=== PATIENT | female | born 1985 ===

== ENCOUNTER 2017-04-09 21:01 | Emergency (ER) | payer MEDICAID, OTHER ==
[2017-04-09 21:31] VITALS: BP 112/79; PULSE 85; RESP 18; TEMP 98.4
[2017-04-09] MEDS ORDERED: Albuterol-Ipratrop 3 mg / 0.5 (3 ml) UD INH STA (22:14)
--- NOTE | 2017-04-09 22:33 | ED PDOC ---
HPI: Asthma Chief Complaint (Provider): shortness of breath History Per: Patient History/Exam Limitations: no limitations Onset/Duration Of Symptoms: Other (3 weeks) Current Symptoms Are (Timing): Still Present Associated Symptoms: Dyspnea, Cough, Sputum Production Severity: Moderate Additional Complaint(s): Hanna Stanton is a 31 yo F with PMH asthma who presented to the ED today with 3 weeks of worsening shortness of breath and cough productive of yellow sputum. She has a Ventolin inhaler, which she has been using 8-10x a day for the past week, along with nebulizer treatments 3+ times per night due to cough waking her up. She tried to remedy her symptoms at home with her inhaler, nebulizer treatments, and OTC medications like mucinex, but did not find relief. She has been hospitalized for asthma exacerbation before, last time around age 20, and has never been intubated. She denies tobacco use. PMD: Dr. Leo <Irene Peck - Last Filed: 04/10/17 00:56> <Remedios Tinoco - Last Filed: 04/13/17 22:39> Time Seen by Provider: 04/09/17 21:50 Chief Complaint (Nursing): Shortness Of Breath Past Medical History Vital Signs: Last Vital Signs Temp 98.4 F 04/09/17 21:28 Pulse 85 04/09/17 21:28 Resp 18 04/09/17 21:28 BP 112/79 04/09/17 21:28 Pulse Ox 97 04/09/17 21:28 - Medical History PMH: Asthma - Family History Family History: States: Other Other Family History: asthma <Irene Peck - Last Filed: 04/10/17 00:56> Vital Signs: Last Vital Signs Temp 98.4 F 04/09/17 21:28 Pulse 85 04/09/17 21:28 Resp 18 04/09/17 22:48 BP 112/79 04/09/17 21:28 Pulse Ox 97 04/10/17 00:56 <Remedios Tinoco - Last Filed: 04/13/17 22:39> - Home Medications Home Medications: Ambulatory Orders Medication Instructions Recorded Azithromycin 1 tab PO DAILY #6 tab 04/10/17 Montelukast [Singulair] 10 mg PO DAILY #30 tab 04/10/17 Prednisone 50 mg PO DAILY #4 tablet 04/10/17 - Allergies Allergies/Adverse Reactions: Allergies Allergy/AdvReac Type Severity Reaction Status Date / Time No Known Allergies Allergy Verified 04/09/17 21:31 Review of Systems Constitutional: Negative for: Fever, Chills Cardiovascular: Negative for: Palpitations Respiratory: Positive for: Cough, Shortness of Breath, Sputum, Wheezing. Negative for: Hemoptysis Gastrointestinal: Negative for: Nausea, Vomiting, Diarrhea, Constipation Genitourinary Female: Negative for: Dysuria, Frequency Neurological: Negative for: Weakness, Numbness <Irene Peck - Last Filed: 04/10/17 00:56> Physical Exam - Physical Exam Appears: Positive for: No Acute Distress (speaking in full sentences) Head Exam: Positive for: ATRAUMATIC, NORMAL INSPECTION, NORMOCEPHALIC Skin: Positive for: Normal Color, Warm, Dry Eye Exam: Positive for: Normal appearance. Negative for: Conjunctival injection ENT: Positive for: Normal ENT Inspection, Pharynx Is (clear). Negative for: Pharyngeal Erythema, Tonsillar Exudate Neck: Positive for: Normal, Painless ROM, Supple Cardiovascular/Chest: Positive for: Regular Rate, Rhythm. Negative for: Murmur Respiratory: Positive for: Wheezing (bilaterally throughout). Negative for: Accessory Muscle Use, Respiratory Distress Gastrointestinal/Abdominal: Positive for: Bowel Sounds, Soft Extremity: Positive for: Normal ROM. Negative for: Tenderness, Deformity Neurologic/Psych: Positive for: Alert, Oriented <Irene Peck - Last Filed: 04/10/17 00:56> - ECG O2 Sat by Pulse Oximetry: 97 <Irene Peck - Last Filed: 04/10/17 00:56> Medical Decision Making Medical Decision Making: CXR Duoneb treatment Methylprednisone 125 mg IV Pt reported relief with treatment; to be discharged with instructions to follow up with PMD. Pt discussed with Dr. Tinoco. <Irene Peck - Last Filed: 04/10/17 00:56> Disposition - Patient ED Disposition Is Patient to be Admitted: No - Disposition Disposition: Routine/Home Disposition Time: 00:52 <Irene Peck - Last Filed: 04/10/17 00:56> <Remedios Tinoco - Last Filed: 04/13/17 22:39> - Clinical Impression Clinical Impression: Asthma exacerbation - Disposition Referrals: Gera Leo MD [Staff Provider] - Condition: STABLE Prescriptions: Azithromycin 1 tab PO DAILY #6 tab Montelukast [Singulair] 10 mg PO DAILY #30 tab Prednisone 50 mg PO DAILY #4 tablet Instructions: Asthma (ED), Acute Bronchitis (ED) Forms: [facility] ED School/Work Excuse
[2017-04-09] MEDS ORDERED: Albuterol-Ipratrop 3 mg / 0.5 (3 ml) UD ONE (22:40)
[2017-04-10 00:55] VITALS: O2SAT 97
--- NOTE | 2017-04-10 09:12 | RAD ---
HISTORY: sob COMPARISON: No prior. TECHNIQUE: Chest PA and lateral FINDINGS: LUNGS: No active pulmonary disease. PLEURA: No significant pleural effusion identified. No pneumothorax apparent. CARDIOVASCULAR: Normal. OSSEOUS STRUCTURES: Limited scoliosis of the cervicothoracic spine noted. VISUALIZED UPPER ABDOMEN: Normal. OTHER FINDINGS: None. IMPRESSION: No acute cardiopulmonary disease appreciated. Limited scoliosis of the cervicothoracic spine noted.
== END 2017-04-10 00:33 | disposition home or self-care (01) ==
LOC: H.ER 21:01
DX: J45.901 Unspecified asthma with (acute) exacerbation (principal)
CPT/HCPCS: 71046; 81025; 94640; 96372; 99283; J2930

== ENCOUNTER 2018-03-18 09:12 | Emergency (ER) | payer OTHER ==
[2018-03-18] MEDS ORDERED: Albuterol-Ipratrop 3 mg / 0.5 (3 ml) UD INH STA (10:00)
--- NOTE | 2018-03-18 10:00 | ED PDOC ---
HPI: Influenza Time Seen by Provider: 03/18/18 09:22 Chief Complaint: Cough, Cold, Congestion Past Medical History - Medical History PMH: Asthma - Home Medications Home Medications: Ambulatory Orders Medication Instructions Recorded Azithromycin 1 tab PO DAILY #6 tab 04/10/17 Montelukast [Singulair] 10 mg PO DAILY #30 tab 04/10/17 Prednisone 50 mg PO DAILY #4 tablet 04/10/17 - Allergies Allergies/Adverse Reactions: Allergies Allergy/AdvReac Type Severity Reaction Status Date / Time No Known Allergies Allergy Verified 04/09/17 21:31 Disposition - Disposition Referrals: Gera Leo MD [Primary Care Provider] -
[2018-03-18 10:01] VITALS: PULSE 85; RESP 18; TEMP 98.2
[2018-03-18] MEDS ORDERED: Albuterol-Ipratrop 3 mg / 0.5 (3 ml) UD ONE (10:05)
--- NOTE | 2018-03-18 10:06 | ED PDOC ---
HPI: Asthma Time Seen by Provider: 03/18/18 09:22 Chief Complaint (Nursing): Cough, Cold, Congestion History Per: Patient Additional Complaint(s): Pt. states for the past 2 weeks she's had a non-productive cough with wheezing. Has been using her albuterol inhaler everyday since the onset. Initially albuterol was providing temporary relief of wheezing but as of late the wheezing has been unresolved. Of note, pt. states she does have a hx of asthma and has been admitted for it in the past 2006 but no previous intubations. Denies fever, chest pain, hemoptysis, sputum production, chills, chest pain. Past Medical History Reviewed: Historical Data, Nursing Documentation, Vital Signs Vital Signs: Last Vital Signs Temp 98.2 F 03/18/18 09:46 Pulse 85 03/18/18 09:46 Resp 18 03/18/18 09:46 BP Pulse Ox 92 L 03/18/18 09:46 - Medical History PMH: Asthma - Surgical History Surgical History: No Surg Hx - Family History Family History: States: No Known Family Hx - Home Medications Home Medications: Ambulatory Orders Medication Instructions Recorded Azithromycin 1 tab PO DAILY #6 tab 04/10/17 Montelukast [Singulair] 10 mg PO DAILY #30 tab 04/10/17 Prednisone 50 mg PO DAILY #4 tablet 04/10/17 Albuterol 0.083% [Albuterol 3 ml IH Q4 PRN #30 neb 03/18/18 Sulfate 3 Ml] Albuterol HFA [Ventolin HFA 90 2 puff IH Q4 PRN #120 puff 03/18/18 mcg/actuation (8 g)] Nebulizer [Aeroeclipse II] 1 each NEB Q4 PRN #1 each 03/18/18 predniSONE [Prednisone] 3 tab PO DAILY #12 tab 03/18/18 - Allergies Allergies/Adverse Reactions: Allergies Allergy/AdvReac Type Severity Reaction Status Date / Time No Known Allergies Allergy Verified 04/09/17 21:31 Review of Systems ROS Statement: Except As Marked, All Systems Reviewed And Found Negative Respiratory: Positive for: Cough, Shortness of Breath, Wheezing Physical Exam - Physical Exam Appears: Positive for: Well, Non-toxic, No Acute Distress (speaking in full sentences) Skin: Positive for: Normal Color, Warm. Negative for: Rash Eye Exam: Positive for: Normal appearance Cardiovascular/Chest: Positive for: Regular Rate, Rhythm Respiratory: Positive for: Wheezing (moderate b/l expiratory wheezing). Negative for: Decreased Breath Sounds, Accessory Muscle Use, Rales, Rhonchi, Respiratory Distress Neurologic/Psych: Positive for: Alert, Oriented (x3) - ECG O2 Sat by Pulse Oximetry: 92 - Radiology X-Ray: Interpreted by Me (CXR) X-Ray Interpretation: No Acute Disease - Progress ED Course And Treament: DuoNeb x 3, prednisone 60mg PO, EKG, CXR ordered. Pt. placed on pharmacy retail support specialist. Pt. states she is currently breast feeding but will switch to formula instead. 1050 On re-evaluation, pt. reports feeling much better but wheezing still present. POX: 93% on RA, HR: 90. Pre peak flow 150, post peak flow 156 as per RN. Additional neb treatments ordered. 1150 On re-evaluation, pt. reports even more improved from my last evaluation. Lungs with minimal wheezing. Post peak flow 300. POX: 97% on RA, HR: 83 Advised to f/u with Dr. Toscano (PMD) for further evaluation but is to return to ED immediately if symptoms worsen. Disposition - Clinical Impression Clinical Impression: Bronchospasm, acute - Patient ED Disposition Is Patient to be Admitted: No - Disposition Referrals: Gera Toscano MD [Staff Provider] - Disposition: Routine/Home Disposition Time: 11:58 Condition: IMPROVED Additional Instructions: FOLLOW UP WITH DR. TOSCANO FOR FURTHER EVALUATION RETURN TO ED IMMEDIATELY IF SYMPTOMS WORSEN KARO POLLOCK, thank you for letting us take care of you today. Your provider was Jeffery Wall MD and you were treated for CHEST PAIN,DIFFICULTY BREATHING. The emergency medical care you received today was directed at your acute sympt oms. If you were prescribed any medication, please fill it and take as directed. It may take several days for your symptoms to resolve. Return to the Emergency Department if your symptoms worsen, do not improve, or if you have any other problems. Please contact your doctor or call one of the physicians/clinics you have been referred to that are listed on the Patient Visit Information form that is included in your discharge packet. Bring any paperwork you were given at discharge with you along with any medications you are taking to your follow up visit. Our treatment cannot replace ongoing medical care by a primary care provider outside of the emergency department. Thank you for allowing the [facility] team to be part of your care today. If you had an X-Ray or CT scan: A Radiologist will review the ED reading if any change in treatment is needed we will contact you. If you had a blood, urine, or wound culture: It will take several days for the results, if any change in treatment is needed we will contact you. If you had an STI test: It will take 48 hours for the results. Please call after 1 week if you have not heard back. Prescriptions: Albuterol 0.083% [Albuterol Sulfate 3 Ml] 3 ml IH Q4 PRN #30 neb PRN Reason: Wheezing Albuterol HFA [Ventolin HFA 90 mcg/actuation (8 g)] 2 puff IH Q4 PRN #120 puff PRN Reason: Wheezing Nebulizer [Aeroeclipse II] 1 each NEB Q4 PRN #1 each PRN Reason: Wheezing predniSONE [Prednisone] 3 tab PO DAILY #12 tab Instructions: Asthma, Adult (DC) Forms: [employer] (Lux[place]bourgish) Print Language: AMHARIC
[2018-03-18] MEDS ORDERED: Albuterol 0.083% Inhal Sol (2.5 mg/3 mL) UD INH STA (10:53)
[2018-03-18 10:55] VITALS: O2SAT 92
--- NOTE | 2018-03-18 13:47 | RAD ---
Date of service: 03/18/2018 HISTORY: cough COMPARISON: Comparison chest 04/09/2017 TECHNIQUE: Chest PA and lateral FINDINGS: LUNGS: No active pulmonary disease. PLEURA: No significant pleural effusion identified. No pneumothorax apparent. CARDIOVASCULAR: No aortic atherosclerotic calcification present. Normal cardiac size. No pulmonary vascular congestion. OSSEOUS STRUCTURES: No significant abnormalities. Minor dextroscoliosis upper/midthoracic spine. VISUALIZED UPPER ABDOMEN: Normal. OTHER FINDINGS: None. IMPRESSION: No active disease.
== END 2018-03-18 14:00 | disposition home or self-care (01) ==
LOC: H.ER 09:12
DX: J98.01 Acute bronchospasm (principal)